=== PATIENT | female | born 1975 | race Caucasian/White ===

== ENCOUNTER → 2018-07-28 10:17 | Outpatient (CLI) | payer OTHER, SELFPAY | PROVIDERS: PCP Family Medicine; Visit Provider Physician Assistant | DX: B96.89 Other specified bacterial agents as the cause of diseases classified elsewhere (principal); N76.0 Acute vaginitis | CPT/HCPCS: 87210 ==

== ENCOUNTER → 2019-01-06 13:01 | Outpatient (CLI) | payer OTHER, SELFPAY ==
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
== END ==
PROVIDERS: PCP Family Medicine; Visit Provider Physician Assistant
DX: S09.93XA Unspecified injury of face, initial encounter (principal); R51 Headache; X58.XXXA Exposure to other specified factors, initial encounter
CPT/HCPCS: 70150

== ENCOUNTER 2019-09-24 13:19 | Emergency (ER) | payer OTHER, SELFPAY ==
[2019-09-24 13:22] VITALS: BP 149/90; PULSE 109; RESP 16; TEMP 36.7; O2SAT 99
--- NOTE | 2019-09-24 15:49 | ED.EXTPRO ---
HPI - Extremity Problem <RUTHIE Doyle - Last Filed: 09/24/19 15:57> General Chief complaint: Extremity Problem,Nontraumatic Stated complaint: L MIDDLE FINGER SWOLLEN Time Seen by Provider: 09/24/19 15:15 Source: patient Mode of arrival: Ambulatory Limitations: no limitations History of Present Illness HPI Narrative: This is a 43-year-old female, nonsmoker, who presents to ED with significant other with nontraumatic left 3rd proximal and middle phalange swelling and bruise. Patient states she is not able to recall any trauma or injury to the affected finger. She noticed some weird feeling on her finger when she was putting lotion on her hand. Patient reports intact sensation and able to move fingers without difficulty such as flexion and extension. Patient denies over stretching or flexing unaffected finger that she can recall. Patient denies easy bruising or bleeding and she is not on blood thinner or taking excessive NSAIDS. Patient reports mild discomfort with flexion of affected finger. Related Data Home Medications Medication Instructions Recorded Confirmed No Known Home Medications 01/06/19 01/06/19 Allergies Allergy/AdvReac Type Severity Reaction Status Date / Time codeine [CODEINE] Allergy Unknown Verified 01/06/19 13:14 Review of Systems <RUTHIE Doyle - Last Filed: 09/24/19 15:57> Review of Systems Narrative: General: Denies fever, chills, fatigue, malaise, sweats. HEENT: Denies sinus pain, ear pain, sore throat, difficulty swallowing, dizziness. Respiratory: Denies dyspnea, cough, wheezing, hemoptysis, sputum. Cardiovascular: Denies chest pain, palpitations, orthopnea, edema. Gastrointestinal: Denies nausea, vomiting, abdominal pain, diarrhea, constipation, melena. : Denies dysuria, frequency, incontinence, hematuria, urinary retention. Musculoskeletal: See HPI Skin: See HPI Neurologic: Denies weakness, headache, numbness, change in speech, confusion, seizures, incoordination. Psychiatric: No concerning psychosocial issues. 12-point review of systems is negative except for those stated above. Patient History <RUTHIE Doyle - Last Filed: 09/24/19 15:57> Social History Smoking Status: Never smoker Smoking Status: Never smoker Substance Use Type: does not use Exam <Melvin ArguellesRUTHIE - Last Filed: 09/24/19 15:57> Narrative Exam Narrative: General appearance: well developed, well nourished, in no acute distress. Head: normocephalic, atraumatic, no scalp lesions, non-tender. ENT: Hearing grossly intact. Nose without bleeding, purulent discharge or deviation. Mucous membrane moist, no mucosal lesion. Throat without erythema, tonsillar hypertrophy or exudate. Uvula in midline, airway patent. Neck/Thyroid: neck supple, full range of motion, no visible masses or meningeal signs. No JVD, non-tender without lymphadenopathy. Skin: mild ecchymosis and swelling to right 3rd middle and proximal phalanges without redness, warmth, or skin injury. With no suspicious rashes, lesions over other visible areas. Warm and dry and appropriate color for ethnicity. Heart: no clubbing, no cyanosis, no edema. Lungs: Breathing even and unlabored. No stridor. No accessory muscles used. Able to speak in full sentences. Chest: normal shape and expansion. Abdomen: non-obese, non-distended. Neurologic: alert and oriented. Cognitive exam, [employer] and PNS grossly intact on informal exam. Psych: good eye contact, normal affect. Initial Vital Signs Initial Vital Signs: Vital Signs Temperature 98.1 F 09/24/19 13:22 Pulse Rate 109 H 09/24/19 13:22 Respiratory Rate 16 09/24/19 13:22 Blood Pressure 149/90 H 09/24/19 13:22 Pulse Oximetry 99 09/24/19 13:22 Extrem Right upper extremity: hand Details: normal capillary refill, neuromotor exam normal, neurosensory exam normal, tenderness (Mild) Location: of the 3rd digit Location: at the proximal phalanx and at the middle phalanx, vascular exam Details: radial pulse present, normal ROM of fingers, swelling Location: of the 3rd digit Location: at the proximal phalanx and at the middle phalanx and ecchymosis Location: of the 3rd digit Location: at the proximal phalanx and at the middle phalanx; no unusual warmth, no abrasions and no lacerations <Ana Jimenes DO - Last Filed: 09/24/19 18:36> Initial Vital Signs Initial Vital Signs: Vital Signs Temperature 98.1 F 09/24/19 13:22 Pulse Rate 109 H 09/24/19 13:22 Respiratory Rate 16 09/24/19 13:22 Blood Pressure 149/90 H 09/24/19 13:22 Pulse Oximetry 99 09/24/19 13:22 Scores <JUDSON DoyleP - Last Filed: 09/24/19 15:57> GCS [place] coma scale eye opening: Spontaneous Alexandra coma scale verbal response: Orientated Alexandra coma scale motor response: Obey commands [place] coma scale total score: 15 Course <Melvin JUDSON ArguellesP - Last Filed: 09/24/19 15:57> Vital Signs Vital signs: Vital Signs - 8 hr 09/24/19 13:22 Temperature 98.1 F Pulse Rate 109 H Respiratory Rate 16 Blood Pressure 149/90 H Pulse Oximetry 99 <Ana Jimenes DO - Last Filed: 09/24/19 18:36> Vital Signs Vital signs: Vital Signs - 8 hr 09/24/19 13:22 Temperature 98.1 F Pulse Rate 109 H Respiratory Rate 16 Blood Pressure 149/90 H Pulse Oximetry 99 MDM - Extremity (Nontraumatic) <Melvin JUDSON ArguellesP - Last Filed: 09/24/19 15:57> Differential Diagnosis Differential diagnosis: Likely cellulitis and other (Fracture, contusion, hematoma) Medical Records Attestation: I reviewed the patient's medical records. [facility] Narrative Medical decision making narrative: Patient declined x-ray test since she is able to move affected finger without difficulty and this was nontraumatic swelling and ecchymosis to right 3rd finger. Unable to locate other significant bruise or bleeding noted or reported by patient. Patient reports pain is very mild as 1/10. At this time patient was of advised to monitor for her symptoms and use ice pack for swelling for next couple of days in use Tylenol as needed for discomfort. If patient notices signs of cellulitis then return to ED or follow up with her primary care physician. Patient also advised to monitor other excessive bruising or bleeding and to follow-up with her primary care physician for lab draw. Patient verbalized understanding and agrees with treatment plan. Discharge Plan Departure Patient Disposition: Home Clinical Impression: Hematoma Discharge Date/Time: 09/24/19 15:53 Instructions: DI for Hematoma (Bruise) Activity Restrictions/Additional Instructions: You have been diagnosed with [spontaneous left 3rd finger bruise/hematoma. X-ray test was deferred since you are able to move without difficulty or much pain.]. What to do: *Take your medications as directed. You can use cool pack for next couple of days frequently 4 to 6 times a day for 30 minutes each. If you have discomfort he can take Tylenol as needed. *Follow up with your primary care provider in 2-3 days, call for an appointment. If you have recurring bruising and bleeding in other areas, please follow-up with your doctor for blood draw. Let them know you were seen in the ED and that we asked you to be seen in follow up. *Return to ED if you have any new, worsening, or concerning symptoms, such as [chest pain, breathing difficulty, unable to tolerate fluids, pain, fever, redness, swelling, warmth spreading on your finger or any acute concerns]. Prescriptions: No Action No Known Home Medications RF: 0 Referrals: Debra Alexander MD [Primary Care Provider] -
== END 2019-09-24 15:53 | disposition home or self-care (01) ==
PROVIDERS: Emergency Provider Nurse Practitioner Family; PCP Family Medicine
DX: S60.032A Contusion of left middle finger without damage to nail, initial encounter (principal)
CPT/HCPCS: 99281

== ENCOUNTER → 2021-01-31 08:05 | Outpatient (CLI) | payer OTHER, SELFPAY ==
[2021-01-31 08:25] LABS: Add Manual Diff / Slide Review NO; Basophils Absolute Auto 100 /uL (0-100); Basophils Percent Auto 2.2 % (0-2); Eosinophils Absolute Auto 300 /uL (0-450); Eosinophils Percent Auto 7.5 % (2-4); Hematocrit 30.2 % (36-46); Hemoglobin 9.5 g/dL (12.0-16.0); Lymphocytes Absolute Auto 1200 /uL (1100-4500); Lymphocytes Percent Auto 27.8 % (25-40); Mean Corpuscular HGB Conc 31.5 % (30-36); Mean Corpuscular Hemoglobin 21.9 PG (26-34); Mean Corpuscular Volume 69.6 fL (80-100); Monocytes Absolute Auto 200 /uL (0-900); Monocytes Percent Auto 5.4 % (3-14); Neutrophils Absolute Auto 2600 /uL (1500-7000); Neutrophils Percent Auto 57.1 % (50-75); Platelet Count 247 X10^3/uL (150-400); Red Blood Cell Count 4.34 X10^6/uL (4.0-5.2); Red Cell Distribution Width 16.7 % (11.6-14.8); White Blood Cell Count 4.5 X10^3/uL (4.5-11.0)
[2021-01-31 08:39] LABS: BUN Creatinine Ratio 13.3 (6-22); Blood Urea Nitrogen 10 mg/dL (7-17); Calcium 9.1 mg/dL (8.4-10.2); Carbon Dioxide 23 mmol/L (22-32); Chloride 108 mmol/L (98-107); Estimated Glomerular Filt Rate > 60.0 mL/min (>60); Glucose 100 mg/dL (70-100); HEMOLYSIS < 15 (0-50); Potassium 3.9 mmol/L (3.4-5.1); Sodium 139 mmol/L (137-145)
[2021-01-31 09:10] LABS: Anisocytosis 1+; Microcytosis 1+; Platelet Estimate Adequate on smear
== END ==
PROVIDERS: PCP Family Medicine; Referring Provider Physician Assistant; Visit Provider Physician Assistant
DX: R10.9 Unspecified abdominal pain (principal)
CPT/HCPCS: 36415; 80048; 85025

== ENCOUNTER → 2021-07-22 09:07 | Outpatient (CLI) | payer OTHER, SELFPAY ==
[2021-07-26 09:45] LABS: HSV 1 DNA Negative (Negative); HSV 2 DNA Negative (Negative)
== END ==
PROVIDERS: PCP Family Medicine; Visit Provider Nurse Practitioner Family
DX: N89.8 Other specified noninflammatory disorders of vagina (principal); N39.0 Urinary tract infection, site not specified
CPT/HCPCS: 87086; 87210; 87529

== ENCOUNTER 2021-08-11 14:11 | Emergency (ER) | payer OTHER, SELFPAY ==
[2021-08-11 14:27] VITALS: BP 190/102; PULSE 86; RESP 18; TEMP 36.7; O2SAT 100; BMI 24.7
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
[2021-08-11 15:04] VITALS: BP 136/82; PULSE 84; RESP 20; O2SAT 99
== END 2021-08-11 15:45 | disposition home or self-care (01) ==
PROVIDERS: Emergency Provider Physician Assistant; PCP Family Medicine
DX: S16.1XXA Strain of muscle, fascia and tendon at neck level, initial encounter (principal); V89.2XXA Person injured in unspecified motor-vehicle accident, traffic, initial encounter; Y92.481 Parking lot as the place of occurrence of the external cause
CPT/HCPCS: 72040; 99283

== ENCOUNTER 2022-03-19 10:52 | Emergency (ER) | payer OTHER, SELFPAY ==
[2022-03-19] VITALS (10 sets, daily range): BP systolic 85–112; BP diastolic 53–64; PULSE 71–85; RESP 16; TEMP 36.4; O2SAT 99–100; BMI 25.8
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
[2022-03-19] MEDS: diazePAM 5 MG TABLET PO (12:22)
[2022-03-19] MEDS: KETOROLAC 30 MG/ML VIAL IM (12:22)
[2022-03-19] MEDS: HYDROMORPHONE 2 MG INJ 1 MG SUBCUT (13:09)
== END 2022-03-19 15:18 | disposition home or self-care (01) ==
PROVIDERS: Emergency Provider Emergency Medicine; PCP Family Medicine
DX: S39.012A Strain of muscle, fascia and tendon of lower back, initial encounter (principal); X50.1XXA Overexertion from prolonged static or awkward postures, initial encounter
CPT/HCPCS: 96372; 99283; J1170; J1885

== ENCOUNTER → 2022-06-19 17:35 | Outpatient (CLI) | payer OTHER, SELFPAY ==
--- NOTE | 2022-06-19 17:37 | DI.RAD.S_ITS ---
PROCEDURE: XR WRIST RT MIN 3V INDICATIONS: Right wrist injury - FOOSH - Snuffbox tenderness TECHNIQUE: 4 views of the wrist were acquired. COMPARISON: None. FINDINGS: Bones: No fractures or dislocations. No suspicious bony lesions. Scaphoid view: Intact Soft tissues: No suspicious soft tissue calcifications. IMPRESSION: No acute osseous abnormality. Dictated by: Tom Mosquera M.D. on 06/19/2022 at 17:31 Approved by: Tom Mosquera M.D. on 06/19/2022 at 17:32
--- NOTE | 2022-06-19 17:37 | DI.RAD.S_ITS ---
PROCEDURE: XR ELBOW RT MIN 3V INDICATIONS: Right elbow injury - FOOSH TECHNIQUE: 3 views of the elbow were acquired. COMPARISON: None. FINDINGS: Bones: Vertically oriented radial head and neck fracture with intra-articular extension. No dislocations. No suspicious bony lesions. Soft tissues: Small anterior elbow joint effusion. No suspicious soft tissue calcifications. IMPRESSION: Vertically oriented radial head and neck fracture with intra-articular extension. Dictated by: Tom Mosquera M.D. on 06/19/2022 at 17:32 Approved by: Tom Mosquera M.D. on 06/19/2022 at 17:34
== END ==
PROVIDERS: PCP Family Medicine; Referring Provider Registered Nurse; Visit Provider Registered Nurse
DX: S52.121A Displaced fracture of head of right radius, initial encounter for closed fracture (principal); S52.131A Displaced fracture of neck of right radius, initial encounter for closed fracture; M25.531 Pain in right wrist; M25.521 Pain in right elbow; W19.XXXA Unspecified fall, initial encounter
CPT/HCPCS: 73080; 73110

== ENCOUNTER → 2022-06-30 13:32 | Outpatient (ROUT) | payer OTHER, SELFPAY ==
[2022-06-30 13:51] LABS: D Dimer 844 ng/ml (<500)
== END ==
PROVIDERS: PCP Family Medicine; Visit Provider Family Medicine
DX: R07.89 Other chest pain (principal)
CPT/HCPCS: 85379

== ENCOUNTER 2023-02-08 07:29 | Emergency (ER) | payer OTHER, SELFPAY ==
[2023-02-08 07:39] VITALS: BP 131/80; PULSE 94; RESP 18; TEMP 37.2; O2SAT 98; BMI 26.6
--- NOTE | 2023-02-08 07:45 | ED.BACK ---
HPI - Back Pain/Injury General Chief Complaint: Back Pain/Injury Stated Complaint: kidney stones Time Seen by Provider: 02/08/23 07:32 Source: patient History of Present Illness HPI Narrative: 47-year-old female nonsmoker with history of kidney stones presents with a chief complaint of a relatively sudden onset low back pain that started this morning. Her pain is significantly worse when she moves and improves with rest. There is no significant radiation of her pain. She denies any trauma or injury. She is had no fever or chills. She does not take blood thinners. She denies loss of control of bowel or bladder. She denies any numbness, tingling or weakness of lower extremities. She states she has had kidney stones in the past and this feels in some ways relatively similar. She just started her menstrual cycle today Related Data Previous Rx's Medication Instructions Recorded cyclobenzaprine 10 mg tablet 10 mg PO Q8H PRN muscle spasm #21 08/11/21 tabs hydrocodone 5 mg-acetaminophen 325 1 tab PO Q8H PRN pain #7 tabs 08/11/21 mg tablet ibuprofen 800 mg tablet 800 mg PO Q8H PRN pain #21 tabs 08/11/21 diazepam 5 mg tablet (Valium) 5 mg PO Q12HR PRN muscle spasm #10 03/19/22 tabs hydrocodone 5 mg-acetaminophen 325 1 tab PO Q6H PRN pain #10 tabs 03/19/22 mg tablet oxycodone-acetaminophen 5 mg-325 1 tab PO Q6H PRN pain #10 tabs 06/19/22 mg tablet (Percocet) cyclobenzaprine 10 mg tablet 10 mg PO TID PRN muscle spasm #14 02/08/23 tabs hydrocodone 5 mg-acetaminophen 325 1 tab PO Q4-6H PRN pain #10 tabs 02/08/23 mg tablet ketorolac 10 mg tablet 10 mg PO Q6H PRN pain #14 tabs 02/08/23 Allergies Allergy/AdvReac Type Severity Reaction Status Date / Time codeine [CODEINE] Allergy Unknown Verified 02/08/23 07:43 Review of Systems Review of Systems Narrative: GENERAL: Denies chills, fatigue, malaise, fever, sweats. HEENT: Denies sinus pain, ear pain, sore throat, difficulty swallowing, dizziness. RESPIRATORY: Denies dyspnea, cough, wheezing, hemoptysis, sputum. CARDIOVASCULAR: Denies chest pain, palpitations, orthopnea, edema, GASTROINTESTINAL: Denies nausea, vomiting, abdominal pain, diarrhea, constipation, melena. : See HPI MUSCULOSKELETAL: See HPI SKIN: Denies rash, skin lesions, or other NEUROLOGIC: Denies weakness, headache, numbness, change in speech, confusion, seizures, incoordination. PSYCHIATRIC: No concerning psychosocial issues. 12 point review of systems is negative except for those stated above Patient History Social History Smoking Status: Never smoker Smoking Status: Never smoker alcohol intake frequency: holidays/special occasions only Substance Use Type: does not use Exam Narrative Exam Narrative: GENERAL: [47] year old patient appears stated age. Well-developed patient, in mild distress. HEAD: Atraumatic. Normocephalic. EYES: Pupils equal round and reactive. Extraocular motions intact. No scleral icterus. No injection or drainage. ENT: Nose without bleeding, purulent drainage. Throat without erythema, tonsillar hypertrophy or exudate. Airway patent. NECK: Trachea midline. Non tender CARDIOVASCULAR: Regular rate and rhythm without murmurs, gallops, or rubs. RESPIRATORY: Clear to auscultation. Breath sounds equal bilaterally. No wheezes, rales, or rhonchi. GASTROINTESTINAL: Abdomen soft, non-tender, nondistended. EXTREMITIES: No edema or joint tenderness. BACK: excelsior machine tender but free of any obvious external abnormalities. Patient exam notes decreased range of motion and muscle spasm, but no CVA tenderness, or vertebral point tenderness. There are no symptoms of cauda equina such as saddle anesthesia, and decreased reflexes, decreased sensation or strength. NEURO: AOx3. SKIN: No rash or erythema of visible areas Initial Vital Signs Initial Vital Signs: Vital Signs Temperature 99.0 F 02/08/23 07:39 Pulse Rate 94 H 02/08/23 07:39 Respiratory Rate 18 02/08/23 07:39 Blood Pressure 131/80 02/08/23 07:39 Pulse Oximetry 98 02/08/23 07:39 Oxygen Delivery Method Room Air 02/08/23 07:39 Course Orders Ordered: Discontinued Medications Sodium Chloride (Normal Saline 0.9%) 1,000 mls @ 1,000 mls/hr IV BOLUS ONE Stop: 02/08/23 08:37 Last Infusion: 02/08/23 09:23 Dose: 0 mls/hr Documented By: Admin: 02/08/23 08:12 Dose: 1,000 mls/hr Documented By: AT Lidocaine HCl 6 ml/ Sodium (Chloride) 56 mls @ 336 mls/hr IV NOW ONE Stop: 02/08/23 08:37 Last Infusion: 02/08/23 09:23 Dose: 0 mls/hr Documented By: Admin: 02/08/23 09:02 Dose: 336 mls/hr Documented By: AT Ketorolac Tromethamine (Ketorolac 30 Mg/Ml Vial) 15 mg IV NOW ONE Stop: 02/08/23 08:37 Last Admin: 02/08/23 09:00 Dose: 15 mg Documented By: AT Lidocaine (Lidocaine Patch 1 Each Adh..Patch) 1 each TOP NOW ONE Stop: 02/08/23 09:45 Vital Signs Vital signs: Vital Signs - 8 hr 02/08/23 07:39 Temperature 99.0 F Pulse Rate 94 H Respiratory Rate 18 Blood Pressure 131/80 Pulse Oximetry 98 Oxygen Delivery Method Room Air MDM - Back Pain/Injury Lab Data 02/08/23 08:18 02/08/23 08:18 Labs: Lab Results 02/08/23 02/08/23 02/08/23 Range/Units 08:18 08:18 08:18 WBC 5.0 (4.5-11.0) X10^3/uL RBC 3.95 L (4.0-5.2) X10^6/uL Hgb 7.5 L (12.0-16.0) g/dL Hct 24.6 L (36-46) % MCV 62.2 L (80-100) fL MCH 18.9 L (26-34) PG MCHC 30.3 (30-36) % RDW 18.9 H (11.6-14.8) % Plt Count 319 (150-400) X10^3/uL Neut % (Auto) 64.7 (50-75) % Lymph % (Auto) 21.8 L (25-40) % [place] % (Auto) 5.6 (3-14) % Eos % (Auto) 5.9 H (2-4) % Baso % (Auto) 2.0 (0-2) % Neut # (Auto) 3200 (5933-1879) /uL Lymph # (Auto) 1100 (6249-9832) /uL [place] # (Auto) 300 (0-900) /uL Eos # (Auto) 300 (0-450) /uL Baso # (Auto) 100 (0-100) /uL Platelet Estimate Adequate on smear RBC Morphology See below Anisocytosis 1+ H Microcytosis 1+ H Sodium 137 (137-145) mmol/L Potassium 4.0 (3.4-5.1) mmol/L Chloride 108 H (98-107) mmol/L Carbon Dioxide 23 (22-32) mmol/L BUN 11 (7-17) mg/dL Creatinine 0.71 (0.52-1.04) mg/dL Estimated GFR > 60 (>60) mL/min BUN/Creatinine Ratio 15.5 (6-22) Glucose 100 (70-100) mg/dL Calcium 8.5 (8.4-10.2) mg/dL Total Bilirubin 0.5 (0.2-1.3) mg/dL AST 31 (14-36) IU/L ALT 31 (<35) IU/L Alkaline Phosphatase 58 (38-126) U/L Total Protein 6.9 (6.3-8.2) g/dL Albumin 4.0 (3.5-5.0) g/dL Globulin 2.9 (1.7-4.1) g/dL Albumin/Globulin Ratio 1.4 (1.0-2.8) Urine RBC 30-100/hpf H (0-5/HPF) Urine WBC 1-5/hpf (0-5/HPF) Ur Squamous Epith Cells 1-5 /hpf (0-5/HPF) Urine Bacteria Few (2-10) H (None) Ur Culture Indicated? Cult not indicated Point of Care Testing Test Results Negative Urine Dip Bedside Urine Glucose Negative Bedside Urine Bilirubin - Negative Bedside Urine Ketone - Negative Urine Specific [place] 1.015 Bedside Urine Occult Blood +++ Bedside Urine pH 6.0 Bedside Urine Protein - Negative Bedside Urine Urobilinogen - Negative Bedside Urine Nitrite - Negative Bedside Urine Leukocytes - Negative Esterase MDM Narrative Medical decision making narrative: [47] year old patient presents with lower back pain Multiple etiologies for patient's symptoms considered including, but not limited to: [Kidney stone versus pyelonephritis versus musculoskeletal versus epidural abscess versus epidural hematoma versus other] Prior Charts reviewed in our EMR Primary Historian: patient Labs reviewed and interpreted by myself: Patient is anemic with hemoglobin 7.5 and 24. No white count or left shift. Electrolytes and kidney function as well as LFTs within normal. Urine demonstrates blood but no sign of infection Imaging reviewed: CT KUB without evidence of stone or other acute process Patient's symptoms improved over duration of stay with above-stated therapies. Given relatively sudden onset of pain some flank involvement and hematuria kidney stone considered but none noted on CT KUB. No evidence of urine infection. Epidural hematoma considered but thought unlikely given lack of trauma or use of blood thinners. Epidural abscess considered but thought unlikely given lack of elevated white blood cell count, immune compromise, IV drug use, furthermore pain is not midline but across her whole lower back Findings and discharge diagnosis discussed with patient/family followed by verbalization of understanding Return precautions discussed with patient/family whom verbalize understanding of diagnosis and plan Discharge Plan Departure Patient Disposition: Home Clinical Impression: Back pain Instructions: DI for Back Spasm Activity Restrictions/Additional Instructions: *You have been diagnosed with [low back pain without evidence of kidney stone, kidney infection ] *What to do: *Please continue to take your regular medications as directed. [x ] New medication prescriptions sent to your pharmacy: [ [facility]] [ ] New medication written as a paper prescription [ ] No new medications given *Please follow up with your primary care provider in 2-3 days, call for an appointment. Let them know you were seen in the Emergency Department and that we ask that you be seen in follow up. We will electronically transmit a record of today's note if your PCP is in our system *If you do not have a primary care provider please contact the [facility] Resource line at [phone]. They will ask some questions about your medical history and help get you set up with a doctor in the community. *Return to Emergency Department if you should have any new, worsening or concerning symptoms, such as [fever greater than 101 F, shaking chills, worsening pain, persistent vomiting or other bothersome symptoms] You have been prescribed a short course of narcotic medications. These are potentially dangerous and addictive medications that should be used carefully. While on these medications you cannot drive or operate heavy machinery. Additionally, you cannot sign legal documents or perform any duties such as this. Many people get constipated on narcotic medications so it would be advisable to discuss stool softeners with the pharmacist when you cone picker your prescription. Please understand that we cannot provide further refills of narcotics or controlled substances through the ED and your pain management will need to be through your Primary Care Provider Prescriptions: New cyclobenzaprine 10 mg tablet 10 mg PO TID PRN (Reason: muscle spasm) Qty: 14 0RF hydrocodone-acetaminophen 5-325 mg tablet 1 tab PO Q4-6H PRN (Reason: pain) Qty: 10 0RF ketorolac 10 mg tablet 10 mg PO Q6H PRN (Reason: pain) Qty: 14 0RF No Action oxycodone-acetaminophen [Percocet] 5-325 mg tablet 1 tab PO Q6H PRN (Reason: pain) Qty: 10 0RF ibuprofen 800 mg tablet 800 mg PO Q8H PRN (Reason: pain) Qty: 21 0RF cyclobenzaprine 10 mg tablet 10 mg PO Q8H PRN (Reason: muscle spasm) Qty: 21 0RF hydrocodone-acetaminophen 5-325 mg tablet 1 tab PO Q8H PRN (Reason: pain) Qty: 7 0RF hydrocodone-acetaminophen 5-325 mg tablet 1 tab PO Q6H PRN (Reason: pain) Qty: 10 0RF diazepam [Valium] 5 mg tablet 5 mg PO Q12HR PRN (Reason: muscle spasm) Qty: 10 0RF Referrals: Debra Alexander MD [Primary Care Provider] - Stand Alone Forms: Patient Portal/API
[2023-02-08] MEDS: SODIUM CHLORIDE 0.9% 1,000 ML 1000 ML IV (08:12)
[2023-02-08 08:14] VITALS: O2SAT 97
[2023-02-08 08:15] VITALS: BP 130/81; PULSE 95; RESP 16; O2SAT 95
[2023-02-08 08:30] VITALS: BP 137/77; PULSE 88; O2SAT 96
[2023-02-08 08:34] LABS: Add Manual Diff / Slide Review NO; Basophils Absolute Auto 100 /uL (0-100); Eosinophils Absolute Auto 300 /uL (0-450); Eosinophils Percent Auto 5.9 % (2-4); Hematocrit 24.6 % (36-46); Hemoglobin 7.5 g/dL (12.0-16.0); Lymphocytes Absolute Auto 1100 /uL (1100-4500); Lymphocytes Percent Auto 21.8 % (25-40); Mean Corpuscular HGB Conc 30.3 % (30-36); Mean Corpuscular Hemoglobin 18.9 PG (26-34); Mean Corpuscular Volume 62.2 fL (80-100); Monocytes Absolute Auto 300 /uL (0-900); Monocytes Percent Auto 5.6 % (3-14); Neutrophils Absolute Auto 3200 /uL (1500-7000); Neutrophils Percent Auto 64.7 % (50-75); Platelet Count 319 X10^3/uL (150-400); Red Blood Cell Count 3.95 X10^6/uL (4.0-5.2); Red Cell Distribution Width 18.9 % (11.6-14.8)
[2023-02-08 08:38] LABS: Alanine Aminotransferase 31 IU/L (<35); Albumin Globulin Ratio 1.4 (1.0-2.8); Alkaline Phosphatase 58 U/L (38-126); Aspartate Aminotransferase 31 IU/L (14-36); BUN Creatinine Ratio 15.5 (6-22); Bilirubin Total 0.5 mg/dL (0.2-1.3); Blood Urea Nitrogen 11 mg/dL (7-17); Calcium 8.5 mg/dL (8.4-10.2); Carbon Dioxide 23 mmol/L (22-32); Chloride 108 mmol/L (98-107); Estimated Glomerular Filt Rate > 60 mL/min (>60); Globulin 2.9 g/dL (1.7-4.1); Glucose 100 mg/dL (70-100); HEMOLYSIS < 15 (0-50); Sodium 137 mmol/L (137-145); Total Protein 6.9 g/dL (6.3-8.2)
--- NOTE | 2023-02-08 08:43 | DI.CT.S_ITS ---
PROCEDURE: CT KIDNEY URETER BLADDER (KUB) INDICATIONS: flank pain, hematuria, stones? TECHNIQUE: Axial sections were acquired from the lung bases to the pubic symphysis. Coronal and sagittal reformats were performed. For radiation dose reduction, the following was used: automated exposure control, adjustment of mA and/or kV according to patient size. COMPARISON: None. FINDINGS: Image quality: Excellent. Lung bases: Unremarkable. Heart: No significant findings. URINARY: Right Kidney: No stones or hydronephrosis. Right Ureter: No hydroureter. Left Kidney: No stones or hydronephrosis. Punctate nonobstructing calcifications in the kidney. Left Ureter: No hydroureter. Bladder: Normal wall thickness. No stones. ABDOMEN: Liver: Unremarkable. Gallbladder: Unremarkable. Biliary ducts: Unremarkable. Pancreas: Unremarkable. Spleen: Unremarkable. Adrenal Glands: Unremarkable. Stomach and Bowel: Stomach, small bowel loops, and colon are unremarkable. Peritoneum: No abnormal intraperitoneal fluid. No free air. Ventral Wall: No hernia. Abdominal Nodes: No enlarged retroperitoneal or mesenteric lymph nodes. Vessels: Aorta and inferior vena cava are normal in size. Mild vascular calcifications. PELVIS: Pelvic Organs: Unremarkable. Pelvic Nodes: Unremarkable. Miscellaneous: No inguinal hernias are seen. Bones: Unremarkable. IMPRESSION: 1. No acute abnormality. 2. No nephroureterolithiasis. Dictated by: Evan Kumar M.D. on 02/08/2023 at 8:54 Approved by: Evan Kumar M.D. on 02/08/2023 at 8:58
[2023-02-08 08:47] LABS: Bacteria Urine Few (2-10); Culture Indicated Urine Cult Not Indicated; RBC Urine 30-100/HPF (0-5/HPF); Squamous Epithelial Cell Urine 1-5 /HPF (0-5/HPF); WBC Urine 1-5/HPF (0-5/HPF)
[2023-02-08] MEDS: KETOROLAC 30 MG/ML VIAL 15 MG IV (09:00)
[2023-02-08] MEDS: LIDOCAINE 2% (PF) 6 ML in SODIUM CHLORIDE 0.9% 50 ML 336 ML IV (09:02)
[2023-02-08 09:10] VITALS: PULSE 91; O2SAT 99
[2023-02-08 09:11] VITALS: BP 135/88; PULSE 89; RESP 18; O2SAT 99
[2023-02-08 09:38] LABS: Anisocytosis 1+; Microcytosis 1+; Platelet Estimate Adequate on smear
== END 2023-02-08 10:09 | disposition home or self-care (01) ==
PROVIDERS: Emergency Provider Emergency Medicine; PCP Family Medicine
DX: M54.50 Low back pain, unspecified (principal); Z87.442 Personal history of urinary calculi
CPT/HCPCS: 36415; 74176; 80053; 81003; 81015; 81025; 85025; 96365; 96375; 99284; J1885

== ENCOUNTER → 2023-07-18 08:22 | Outpatient (CLI) | payer OTHER, SELFPAY ==
--- NOTE | 2023-07-18 | DI.RAD.S_ITS ---
PROCEDURE: XR ABDOMEN 3V INDICATIONS: URGE URINARY INCONTINENCE, irregular bowel habits, iron deficiency. TECHNIQUE: 4 views of the abdomen were acquired. COMPARISON: None. FINDINGS: Surgical changes and devices: None. Abdomen: Bowel gas pattern is normal. Small calcifications are noted projecting in the region of mid to lower pole left kidney and measures 3-4 mm in size. Visualized solid organ contours appear normal. Bones: No suspicious bony lesions. IMPRESSION: Possible left renal calculi as above. No definite right-sided renal stones. No bowel obstruction or gross free air. Dictated by: Dino Branham M.D. on 07/18/2023 at 11:09 Approved by: Dino Branham M.D. on 07/18/2023 at 11:10
== END ==
PROVIDERS: PCP Family Medicine; Referring Provider Family Medicine; Visit Provider Family Medicine
DX: N39.46 Mixed incontinence (principal); R19.8 Other specified symptoms and signs involving the digestive system and abdomen; D50.0 Iron deficiency anemia secondary to blood loss (chronic)
CPT/HCPCS: 74021

== ENCOUNTER → 2023-08-10 08:51 | Outpatient (CLI) | payer OTHER, SELFPAY ==
--- NOTE | 2023-08-10 | DI.RAD.S_ITS ---
PROCEDURE: XR CHEST 2V INDICATIONS: chest pain TECHNIQUE: 2 views of the chest were acquired. COMPARISON: [facility], , CHEST 2 VIEW, 01/08/2017, 19:23. FINDINGS: Surgical changes and devices: None. Lungs and pleura: Lungs are clear. No pleural effusions or pneumothorax. Mediastinum: Mediastinal contours are normal. Heart size is normal. Bones and chest wall: No suspicious bony abnormalities. Soft tissues appear unremarkable. IMPRESSION: No acute cardiopulmonary abnormality. Dictated by: Tom Mosquera M.D. on 08/10/2023 at 9:31 Approved by: Tom Mosquera M.D. on 08/10/2023 at 9:32
== END ==
PROVIDERS: PCP Family Medicine; Referring Provider Family Medicine; Visit Provider Family Medicine
DX: R07.9 Chest pain, unspecified (principal)
CPT/HCPCS: 71046

== ENCOUNTER → 2023-09-09 09:17 | Outpatient (CLI) | payer OTHER, SELFPAY | PROVIDERS: PCP Family Medicine; Visit Provider Nurse Practitioner Family | DX: R39.15 Urgency of urination (principal) | CPT/HCPCS: 87086 ==

== ENCOUNTER 2023-09-10 09:43 | Emergency (ER) | payer OTHER, SELFPAY ==
[2023-09-10] VITALS (9 sets, daily range): BP systolic 138–158; BP diastolic 77–94; PULSE 77–94; RESP 18; TEMP 36.9; O2SAT 92–98; BMI 27.4
[2023-09-10] MEDS: SODIUM CHLORIDE 0.9% 1,000 ML 1000 ML IV (10:09)
[2023-09-10] MEDS: KETOROLAC 30 MG/ML VIAL 15 MG IV (10:10)
--- NOTE | 2023-09-10 10:31 | ED.FEMALEGU ---
HPI - Female Genitourinary General Chief complaint: Urogenital-Female Stated complaint: poss kidney stones Time Seen by Provider: 09/10/23 09:53 Source: patient Mode of arrival: Ambulatory History of Present Illness HPI Narrative: 47-year-old female presents for evaluation of lower pelvic pain. Patient is 2.5 weeks status post hysterectomy through OBGYN at [facility] for menorrhagia leading to severe anemia. Patient states that she has been recovering at home without difficulty, however several days prior she began to notice Gradually worsening pelvic pain. She went to the walk-in clinic and was diagnosed with a urinary tract infection and was placed on Keflex. She called her OB GYNs office earlier today who requested that she go to the ER for further evaluation. She has noticed light vaginal spotting which she assumes is normal after her hysterectomy. denies history of kidney stones. Related Data Previous Rx's Medication Instructions Recorded cyclobenzaprine 10 mg tablet 10 mg PO Q8H PRN muscle spasm #21 08/11/21 tabs hydrocodone 5 mg-acetaminophen 325 1 tab PO Q8H PRN pain #7 tabs 08/11/21 mg tablet ibuprofen 800 mg tablet 800 mg PO Q8H PRN pain #21 tabs 08/11/21 diazepam 5 mg tablet (Valium) 5 mg PO Q12HR PRN muscle spasm #10 03/19/22 tabs hydrocodone 5 mg-acetaminophen 325 1 tab PO Q6H PRN pain #10 tabs 03/19/22 mg tablet oxycodone-acetaminophen 5 mg-325 1 tab PO Q6H PRN pain #10 tabs 06/19/22 mg tablet (Percocet) cyclobenzaprine 10 mg tablet 10 mg PO TID PRN muscle spasm #14 02/08/23 tabs hydrocodone 5 mg-acetaminophen 325 1 tab PO Q4-6H PRN pain #10 tabs 02/08/23 mg tablet ketorolac 10 mg tablet 10 mg PO Q6H PRN pain #14 tabs 02/08/23 cephalexin 500 mg capsule 500 mg PO QID 5 days #20 caps 09/09/23 Allergies Allergy/AdvReac Type Severity Reaction Status Date / Time codeine [CODEINE] Allergy Unknown Verified 09/09/23 09:28 Review of Systems Review of Systems Narrative: Negative except as noted above Patient History alcohol intake frequency: holidays/special occasions only Substance Use Type: does not use Exam Initial Vital Signs Initial Vital Signs: Vital Signs Temperature 98.5 F 09/10/23 09:47 Pulse Rate 85 09/10/23 09:47 Respiratory Rate 18 09/10/23 09:47 Pulse Oximetry 95 09/10/23 09:47 Oxygen Delivery Method Room Air 09/10/23 09:47 ?Const: Awake, alert, no acute distress, nontoxic appearing Cardiac: regular rate, regular rhythm RESP: unlabored, clear bilaterally, no wheezing GI: Atraumatic, soft, suprapubic tenderness to deep palpation MSK: Atraumatic, full range of motion, pulses equal Skin: Warm, Dry, intact, no rashes Neuro: AO x3, CN II-XII grossly intact, moves all extremities Psych: affect normal, mood normal, not suicidal, not homicidal Course Orders Ordered: Discontinued Medications Sodium Chloride (Normal Saline 0.9%) 1,000 mls @ 1,000 mls/hr IV BOLUS ONE Stop: 09/10/23 11:01 Last Infusion: 09/10/23 11:43 Dose: Infused Documented By: Admin: 09/10/23 10:09 Dose: 1,000 mls/hr Documented By: CJ Ketorolac Tromethamine (Ketorolac 30 Mg/Ml Vial) 15 mg IV NOW ONE Stop: 09/10/23 10:03 Last Admin: 09/10/23 10:10 Dose: 15 mg Documented By: CJ Vital Signs Vital signs: Vital Signs - 8 hr 09/10/23 09:47 09/10/23 09:56 09/10/23 09:57 Temperature 98.5 F Pulse Rate 85 Respiratory Rate 18 Blood Pressure 158/84 H Pulse Oximetry 95 92 Oxygen Delivery Method Room Air 09/10/23 09:57 09/10/23 10:00 09/10/23 10:00 Temperature Pulse Rate 92 H 87 Respiratory Rate Blood Pressure 138/77 Pulse Oximetry 95 94 Oxygen Delivery Method 09/10/23 10:21 09/10/23 10:21 09/10/23 10:30 Temperature Pulse Rate 91 H 94 H Respiratory Rate Blood Pressure 148/88 H Pulse Oximetry 97 94 Oxygen Delivery Method 09/10/23 10:30 09/10/23 11:00 09/10/23 11:30 Temperature Pulse Rate 80 77 Respiratory Rate Blood Pressure 151/88 H Pulse Oximetry 98 95 Oxygen Delivery Method MDM - Female Genitourinary Differential Diagnosis Differential diagnosis: Likely urinary tract infection, vaginitis and ruptured ovarian cyst Lab Data 09/10/23 10:20 09/10/23 10:20 Labs: Lab Results 09/10/23 Range/Units 10:20 WBC 8.0 (4.5-11.0) X10^3/uL RBC 5.09 (4.0-5.2) X10^6/uL Hgb 14.0 (12.0-16.0) g/dL Hct 41.0 (36-46) % MCV 80.4 (80-100) fL MCH 27.5 (26-34) PG MCHC 34.2 (30-36) % RDW 25.8 H (11.6-14.8) % Plt Count 312 (150-400) X10^3/uL Neut % (Auto) 72.4 (50-75) % Lymph % (Auto) 17.2 L (25-40) % [place] % (Auto) 5.2 (3-14) % Eos % (Auto) 4.2 H (2-4) % Baso % (Auto) 1.0 (0-2) % Neut # (Auto) 5800 (5870-9166) /uL Lymph # (Auto) 1400 (3701-6758) /uL [place] # (Auto) 400 (0-900) /uL Eos # (Auto) 300 (0-450) /uL Baso # (Auto) 100 (0-100) /uL RBC Morphology See below Poikilocytosis 1+ H Anisocytosis 2+ H Sodium 137 (137-145) mmol/L Potassium 3.3 L (3.4-5.1) mmol/L Chloride 103 (98-107) mmol/L Carbon Dioxide 23 (22-32) mmol/L BUN 11 (7-17) mg/dL Creatinine 0.80 (0.52-1.04) mg/dL Estimated GFR > 60 (>60) mL/min BUN/Creatinine Ratio 13.8 (6-22) Glucose 86 (70-100) mg/dL Calcium 10.0 (8.4-10.2) mg/dL Total Bilirubin 0.8 (0.2-1.3) mg/dL AST 34 (14-36) IU/L ALT 41 H (<35) IU/L Alkaline Phosphatase 58 (38-126) U/L Total Protein 8.4 H (6.3-8.2) g/dL Albumin 4.7 (3.5-5.0) g/dL Globulin 3.7 (1.7-4.1) g/dL Albumin/Globulin Ratio 1.3 (1.0-2.8) MDM Narrative Medical decision making narrative: Patient presenting for lower abdominal pain, concerns for kidney stones. I explained that ideally, especially postoperatively I would like to get a CT scan. Patient stated that they were numerous family members with various cancers in her family and she has already had CT scans in the past. Due to the radiation risk she did not want a CT scan. CT of the renal system was negative for acute findings. Since patient is so recently postoperative after a hysterectomy a call was placed to the patient's OBGYN office. They state that the patient is not supposed to have any transabdominal imaging at, however a gentle speculum exam is okay. I discussed all lab and imaging findings with the Patient. She states that she is follow up appointment with her OB GYNs office in just 2 days and we will defer a speculum exam at this time. She will continue to take Tylenol and Motrin as needed for pain and we will continue to take her antibiotics as previously prescribed. Discharge Plan Departure Patient Disposition: Home Clinical Impression: Pelvic pain Instructions: DI for Pelvic Pain Prescriptions: No Action cephalexin 500 mg capsule 500 mg PO QID 5 Days Qty: 20 0RF oxycodone-acetaminophen [Percocet] 5-325 mg tablet 1 tab PO Q6H PRN (Reason: pain) Qty: 10 0RF cyclobenzaprine 10 mg tablet 10 mg PO TID PRN (Reason: muscle spasm) Qty: 14 0RF hydrocodone-acetaminophen 5-325 mg tablet 1 tab PO Q4-6H PRN (Reason: pain) Qty: 10 0RF ketorolac 10 mg tablet 10 mg PO Q6H PRN (Reason: pain) Qty: 14 0RF ibuprofen 800 mg tablet 800 mg PO Q8H PRN (Reason: pain) Qty: 21 0RF cyclobenzaprine 10 mg tablet 10 mg PO Q8H PRN (Reason: muscle spasm) Qty: 21 0RF hydrocodone-acetaminophen 5-325 mg tablet 1 tab PO Q8H PRN (Reason: pain) Qty: 7 0RF hydrocodone-acetaminophen 5-325 mg tablet 1 tab PO Q6H PRN (Reason: pain) Qty: 10 0RF diazepam [Valium] 5 mg tablet 5 mg PO Q12HR PRN (Reason: muscle spasm) Qty: 10 0RF Referrals: Debra Alexander MD [Primary Care Provider] - Stand Alone Forms: Patient Portal/API
[2023-09-10 10:34] LABS: Add Manual Diff / Slide Review NO; Basophils Absolute Auto 100 /uL (0-100); Eosinophils Absolute Auto 300 /uL (0-450); Eosinophils Percent Auto 4.2 % (2-4); Lymphocytes Absolute Auto 1400 /uL (1100-4500); Lymphocytes Percent Auto 17.2 % (25-40); Mean Corpuscular HGB Conc 34.2 % (30-36); Mean Corpuscular Hemoglobin 27.5 PG (26-34); Mean Corpuscular Volume 80.4 fL (80-100); Monocytes Absolute Auto 400 /uL (0-900); Monocytes Percent Auto 5.2 % (3-14); Neutrophils Absolute Auto 5800 /uL (1500-7000); Neutrophils Percent Auto 72.4 % (50-75); Platelet Count 312 X10^3/uL (150-400); Red Blood Cell Count 5.09 X10^6/uL (4.0-5.2); Red Cell Distribution Width 25.8 % (11.6-14.8)
--- NOTE | 2023-09-10 10:47 | PC.NURSE ---
Pt concerned about having a CT due to radiation exposure and having a recent surgery. Pt requesting to have an ultrasound instead and to wait and see if there are any changes in blood work. RN notified Dr. Hernández.
[2023-09-10 10:52] LABS: Anisocytosis 2+; Poikilocytosis 1+
--- NOTE | 2023-09-10 10:52 | PC.NURSE ---
Addendum entered by Selena Sy CNA 09/10/23 11:46: Called again at 1146 after not hearing back from office or the surgeon. spoke with torito say they are waiting for surgeon to call back will send text to try and get a response Original Note: Pt's OB surgeon office ( [phone] ) contacted per Dr. Hernández. I talked with the body technician and gave her our number. She is going to reach out to the surgeon and call us back.
[2023-09-10 11:04] LABS: Alanine Aminotransferase 41 IU/L (<35); Albumin 4.7 g/dL (3.5-5.0); Albumin Globulin Ratio 1.3 (1.0-2.8); Alkaline Phosphatase 58 U/L (38-126); Aspartate Aminotransferase 34 IU/L (14-36); BUN Creatinine Ratio 13.8 (6-22); Bilirubin Total 0.8 mg/dL (0.2-1.3); Blood Urea Nitrogen 11 mg/dL (7-17); Carbon Dioxide 23 mmol/L (22-32); Chloride 103 mmol/L (98-107); Estimated Glomerular Filt Rate > 60 mL/min (>60); Globulin 3.7 g/dL (1.7-4.1); Glucose 86 mg/dL (70-100); HEMOLYSIS < 15 (0-50); Potassium 3.3 mmol/L (3.4-5.1); Sodium 137 mmol/L (137-145); Total Protein 8.4 g/dL (6.3-8.2)
--- NOTE | 2023-09-10 11:48 | DI.US.S_ITS ---
PROCEDURE: US RENAL COMPLETE INDICATIONS: FLANK/SUPRAPUBIC PAIN TECHNIQUE: Real-time scanning was performed of the kidneys and bladder, with image documentation. COMPARISON: [facility], US, RENAL COMPLETE, 11/14/2008, 16:13. [facility], CT, CT KIDNEY URETER BLADDER (KUB), 02/08/2023, 8:43. FINDINGS: Kidneys: The kidneys measure 11-12 centimeters. No hydronephrosis, solid mass, complex cystic lesion, or significant cortical thinning. Bladder: Postvoid volume of the bladder is 5 cc. Both ureteral jets are seen. Miscellaneous: Ovaries are not well identified due to bowel gas. No significant pelvic fluid collection. IMPRESSION: No acute sonographic abnormality in kidneys or bladder. No hydronephrosis or obstructing stone. Postvoid residual is 5 cc. Dictated by: Preet Woo M.D. on 09/10/2023 at 13:39 Approved by: Preet Woo M.D. on 09/10/2023 at 13:40
--- NOTE | 2023-09-10 11:49 | PC.NURSE ---
at 1055 pt told RN she felt was she was beginning to have an ocular migraine with blurry vision on her right eye. Dr. Hernández made aware.
--- NOTE | 2023-09-10 13:14 | PC.NURSE ---
Transfer to [facility] initiated face sheet faxed to transfer center, Request made to push images.
== END 2023-09-10 13:52 | disposition home or self-care (01) ==
PROVIDERS: Emergency Provider Emergency Medicine; PCP Family Medicine
DX: R10.2 Pelvic and perineal pain (principal)
CPT/HCPCS: 36415; 76770; 80053; 85025; 96361; 96374; 99284; J1885

== ENCOUNTER 2023-11-11 13:12 | Emergency (ER) | payer OTHER, SELFPAY ==
[2023-11-11] VITALS (15 sets, daily range): BP systolic 135–172; BP diastolic 78–96; PULSE 88–106; RESP 18; TEMP 36.1; O2SAT 95–100; BMI 27.1
[2023-11-11 13:33] LABS: Add Manual Diff / Slide Review NO; Basophils Absolute Auto 100 /uL (0-100); Basophils Percent Auto 0.6 % (0-2); Eosinophils Absolute Auto 200 /uL (0-450); Eosinophils Percent Auto 1.6 % (2-4); Hematocrit 43.1 % (36-46); Hemoglobin 14.8 g/dL (12.0-16.0); Lymphocytes Absolute Auto 1400 /uL (1100-4500); Lymphocytes Percent Auto 9.3 % (25-40); Mean Corpuscular HGB Conc 34.3 % (30-36); Mean Corpuscular Hemoglobin 29.7 PG (26-34); Mean Corpuscular Volume 86.4 fL (80-100); Monocytes Absolute Auto 600 /uL (0-900); Monocytes Percent Auto 3.9 % (3-14); Neutrophils Absolute Auto 12400 /uL (1500-7000); Neutrophils Percent Auto 84.6 % (50-75); Platelet Count 286 X10^3/uL (150-400); Red Blood Cell Count 4.99 X10^6/uL (4.0-5.2); Red Cell Distribution Width 13.4 % (11.6-14.8); White Blood Cell Count 14.6 X10^3/uL (4.5-11.0)
[2023-11-11] MEDS: SODIUM CHLORIDE 0.9% 1,000 ML 1000 ML IV (13:35)
--- NOTE | 2023-11-11 13:46 | DI.CT.S_ITS ---
PROCEDURE: CT KIDNEY URETER BLADDER (KUB) INDICATIONS: L FLANK PAIN, HX STONES TECHNIQUE: Axial sections were acquired from the lung bases to the pubic symphysis. Coronal and sagittal reformats were performed. For radiation dose reduction, the following was used: automated exposure control, adjustment of mA and/or kV according to patient size. COMPARISON: None. FINDINGS: Image quality: Diagnostic. Lower Chest: No significant findings. URINARY: Right Kidney: A few punctate nonobstructive stones. Right Ureter: No hydroureter. Left Kidney: A few small 1-2 mm stones. Left Ureter: Mild proximal hydronephrosis with a proximal ureteral stone measuring 4 mm. Bladder: Normal wall thickness. No stones. ABDOMEN: Liver: No contour-deforming solid mass. Gallbladder: No radiopaque gallstones or wall thickening. Biliary ducts: No biliary dilation. Pancreas: No ductal dilation. Spleen: Size is within normal limits. Adrenal Glands: No adrenal nodules. Stomach and Bowel: Normal colonic caliber, without significant wall thickening. Scattered colonic diverticula without evidence of acute diverticulitis. Peritoneum: No abnormal intraperitoneal fluid. No free air. Ventral Wall: No hernia. Abdominal Nodes: No enlarged retroperitoneal or mesenteric lymph nodes. Vessels: Aorta and inferior vena cava are normal in size. PELVIS: Pelvic Organs: Status post hysterectomy. Pelvic Nodes: Unremarkable. Miscellaneous: No inguinal hernias are seen. Bones: Unremarkable. IMPRESSION: Left proximal ureteral stone measuring 4 mm with left-sided hydronephrosis. Additional bilateral small stones. Dictated by: Jones Acosta M.D. on 11/11/2023 at 13:44 Approved by: Jones Acosta M.D. on 11/11/2023 at 13:47
[2023-11-11 13:47] LABS: Alanine Aminotransferase 28 IU/L (<35); Albumin 4.5 g/dL (3.5-5.0); Albumin Globulin Ratio 1.3 (1.0-2.8); Alkaline Phosphatase 77 U/L (38-126); Aspartate Aminotransferase 30 IU/L (14-36); BUN Creatinine Ratio 15.4 (6-22); Bilirubin Total 1.5 mg/dL (0.2-1.3); Blood Urea Nitrogen 14 mg/dL (7-17); Calcium 9.9 mg/dL (8.4-10.2); Carbon Dioxide 23 mmol/L (22-32); Chloride 105 mmol/L (98-107); Estimated Glomerular Filt Rate > 60 mL/min (>60); Globulin 3.5 g/dL (1.7-4.1); Glucose 119 mg/dL (70-100); HEMOLYSIS < 15 (0-50); Potassium 3.8 mmol/L (3.4-5.1); Sodium 137 mmol/L (137-145)
--- NOTE | 2023-11-11 13:50 | ED_ITS ---
HPI - Female Genitourinary General Chief complaint: Urogenital-Female Stated complaint: thinks kidney stones Time Seen by Provider: 11/11/23 13:21 Source: patient Mode of arrival: Ambulatory History of Present Illness HPI Narrative: 47-year-old female with history of renal stones presents by private vehicle from home for 1 day left-sided flank pain. States it is similar to previous kidney stones however pain goes ?into my intestines?. Not controlled with home pain medications. Patient reports 10/ pain in her left side and lower abdomen Related Data Previous Rx's Medication Instructions Recorded cyclobenzaprine 10 mg tablet 10 mg PO Q8H PRN muscle spasm #21 08/11/21 tabs hydrocodone 5 mg-acetaminophen 325 1 tab PO Q8H PRN pain #7 tabs 08/11/21 mg tablet ibuprofen 800 mg tablet 800 mg PO Q8H PRN pain #21 tabs 08/11/21 diazepam 5 mg tablet (Valium) 5 mg PO Q12HR PRN muscle spasm #10 03/19/22 tabs hydrocodone 5 mg-acetaminophen 325 1 tab PO Q6H PRN pain #10 tabs 03/19/22 mg tablet oxycodone-acetaminophen 5 mg-325 1 tab PO Q6H PRN pain #10 tabs 06/19/22 mg tablet (Percocet) cyclobenzaprine 10 mg tablet 10 mg PO TID PRN muscle spasm #14 02/08/23 tabs hydrocodone 5 mg-acetaminophen 325 1 tab PO Q4-6H PRN pain #10 tabs 02/08/23 mg tablet ketorolac 10 mg tablet 10 mg PO Q6H PRN pain #14 tabs 02/08/23 ondansetron 4 mg disintegrating 4 mg PO Q8H PRN nausea and 11/11/23 tablet vomiting #30 tabs oxycodone-acetaminophen 5 mg-325 1 tab PO Q4-6H PRN pain #14 tabs 11/11/23 mg tablet tamsulosin 0.4 mg capsule 0.4 mg PO DAILY #30 caps 11/11/23 Allergies Allergy/AdvReac Type Severity Reaction Status Date / Time codeine [CODEINE] AdvReac Unknown Vomiting Verified 11/11/23 13:16 Review of Systems Review of Systems Narrative: Negative except as noted above Patient History alcohol intake frequency: holidays/special occasions only Substance Use Type: does not use Exam Initial Vital Signs Initial Vital Signs: Vital Signs Temperature 97 F L 11/11/23 13:16 Pulse Rate 101 H 11/11/23 13:16 Respiratory Rate 18 11/11/23 13:16 Blood Pressure 142/83 H 11/11/23 13:16 Pulse Oximetry 100 11/11/23 13:16 Oxygen Delivery Method Room Air 11/11/23 13:16 Const: Awake, alert, uncomfortable, in pain Cardiac: Tachycardia, regular rhythm RESP: Hyperventilating, clear bilaterally, no wheezing GI: Soft, generalized left upper and lower tenderness to deep palpation MSK: L CVA tenderness to percussion Skin: Warm, Dry, intact, no rashes Neuro: AO x3, CN II-XII grossly intact, moves all extremities Course Orders Ordered: ED Orders 11/11/23 13:25 CBC Auto Diff [Complete Blood Count AUTO DIFF] Stat CMP [Comprehensive Metabolic Panel] Stat 11/11/23 13:46 CT kidney ureter bladder (KUB) Stat 11/11/23 15:38 UA Complete [Urinalysis and Microscopic] Stat Discontinued Medications Acetaminophen (Acetaminophen 325 Mg Tablet) 975 mg PO NOW ONE Stop: 11/11/23 16:21 Last Admin: 11/11/23 16:30 Dose: 975 mg Documented By: MARY Sodium Chloride (Normal Saline 0.9%) 1,000 mls @ 1,000 mls/hr IV BOLUS ONE Stop: 11/11/23 14:21 Last Infusion: 11/11/23 14:35 Dose: Infused Documented By: Admin: 11/11/23 13:35 Dose: 1,000 mls/hr Documented By: ESTEPHANIE Sodium Chloride (Normal Saline 0.9%) 1,000 mls @ 1,000 mls/hr IV BOLUS ONE Stop: 11/11/23 14:41 Last Admin: 11/11/23 13:55 Dose: Not Given Documented By: ESTEPHANIE Acetaminophen (Ofirmev) 1,000 mg in 100 mls @ 400 mls/hr IV NOW ONE Stop: 11/11/23 14:50 Last Infusion: 11/11/23 14:50 Dose: Infused Documented By: Admin: 11/11/23 14:38 Dose: 400 mls/hr Documented By: MARY Ketorolac Tromethamine (Ketorolac 30 Mg/Ml Vial) 15 mg IV NOW ONE Stop: 11/11/23 13:43 Last Admin: 11/11/23 13:54 Dose: 15 mg Documented By: ESTEPHANIE Morphine Sulfate (Morphine 4 Mg/Ml Inj) 4 mg IV NOW ONE Stop: 11/11/23 13:43 Last Admin: 11/11/23 13:54 Dose: 4 mg Documented By: ESTEPHANIE Ondansetron HCl (Ondansetron 4 Mg/2 Ml Inj) 4 mg IV NOW ONE Stop: 11/11/23 13:43 Last Admin: 11/11/23 13:54 Dose: 4 mg Documented By: ESTEPHANIE Ondansetron HCl (Ondansetron 4 Mg Odt) 4 mg SL NOW ONE Stop: 11/11/23 16:21 Last Admin: 11/11/23 16:25 Dose: 4 mg Documented By: MARY Oxycodone HCl (Oxycodone Ir 5 Mg Tablet) 5 mg PO NOW ONE Stop: 11/11/23 16:21 Last Admin: 11/11/23 16:28 Dose: 5 mg Documented By: MARY Vital Signs Vital signs: Vital Signs - 8 hr 11/11/23 13:16 11/11/23 13:23 11/11/23 13:24 Temperature 97 F L Pulse Rate 101 H 106 H 100 H Respiratory Rate 18 Blood Pressure 142/83 H Pulse Oximetry 100 99 100 Oxygen Delivery Method Room Air 11/11/23 13:24 11/11/23 13:30 11/11/23 13:30 Temperature Pulse Rate 95 H Respiratory Rate Blood Pressure 170/92 H 137/78 Pulse Oximetry 100 Oxygen Delivery Method 11/11/23 14:10 11/11/23 14:11 11/11/23 14:11 Temperature Pulse Rate 105 H 106 H Respiratory Rate Blood Pressure 172/96 H Pulse Oximetry 96 100 Oxygen Delivery Method Room Air 11/11/23 14:30 11/11/23 14:30 11/11/23 15:00 Temperature Pulse Rate 90 88 Respiratory Rate Blood Pressure 147/80 H Pulse Oximetry 100 100 Oxygen Delivery Method Room Air 11/11/23 15:00 11/11/23 15:05 11/11/23 15:10 Temperature Pulse Rate 90 90 Respiratory Rate Blood Pressure 135/80 Pulse Oximetry 99 97 Oxygen Delivery Method Room Air 11/11/23 15:15 11/11/23 15:20 11/11/23 15:25 Temperature Pulse Rate 93 H 90 93 H Respiratory Rate Blood Pressure Pulse Oximetry 95 95 Oxygen Delivery Method Room Air 11/11/23 16:13 11/11/23 16:15 11/11/23 16:15 Temperature Pulse Rate 99 H 104 H Respiratory Rate Blood Pressure 143/95 H Pulse Oximetry 96 97 Oxygen Delivery Method Room Air MDM - Female Genitourinary Differential Diagnosis Differential diagnosis: Likely urinary tract infection, cystitis and dysmenorrhea Lab Data 11/11/23 13:25 11/11/23 13:25 Labs: Lab Results 11/11/23 11/11/23 Range/Units 13:25 15:38 WBC 14.6 H (4.5-11.0) X10^3/uL RBC 4.99 (4.0-5.2) X10^6/uL Hgb 14.8 (12.0-16.0) g/dL Hct 43.1 (36-46) % MCV 86.4 (80-100) fL MCH 29.7 (26-34) PG MCHC 34.3 (30-36) % RDW 13.4 (11.6-14.8) % Plt Count 286 (150-400) X10^3/uL Neut % (Auto) 84.6 H (50-75) % Lymph % (Auto) 9.3 L (25-40) % [place] % (Auto) 3.9 (3-14) % Eos % (Auto) 1.6 L (2-4) % Baso % (Auto) 0.6 (0-2) % Neut # (Auto) 93962 H (1158-1999) /uL Lymph # (Auto) 1400 (0541-6488) /uL [place] # (Auto) 600 (0-900) /uL Eos # (Auto) 200 (0-450) /uL Baso # (Auto) 100 (0-100) /uL Sodium 137 (137-145) mmol/L Potassium 3.8 (3.4-5.1) mmol/L Chloride 105 (98-107) mmol/L Carbon Dioxide 23 (22-32) mmol/L BUN 14 (7-17) mg/dL Creatinine 0.91 (0.52-1.04) mg/dL Estimated GFR > 60 (>60) mL/min BUN/Creatinine Ratio 15.4 (6-22) Glucose 119 H (70-100) mg/dL Calcium 9.9 (8.4-10.2) mg/dL Total Bilirubin 1.5 H (0.2-1.3) mg/dL AST 30 (14-36) IU/L ALT 28 (<35) IU/L Alkaline Phosphatase 77 (38-126) U/L Total Protein 8.0 (6.3-8.2) g/dL Albumin 4.5 (3.5-5.0) g/dL Globulin 3.5 (1.7-4.1) g/dL Albumin/Globulin Ratio 1.3 (1.0-2.8) Urine Color Yellow Urine Appearance Clear Urine pH 8.0 (4.5-8.0) Ur Specific [place] 1.015 (1.000-1.035) Urine Protein Negative (Negative) Urine Glucose (UA) Negative (Negative) g/dL Urine Ketones 2+ H (NEGATIVE) Urine Occult Blood 2+ H (Negative) Urine Nitrate Negative (Negative) Urine Bilirubin Negative (NEGATIVE) Urine Urobilinogen 0.2 (0.2) E.U./dL Ur Leukocyte Esterase Negative (NEGATIVE) Urine RBC 10-30/hpf H (0-5/HPF) Urine WBC None seen (0-5/HPF) Ur Squamous Epith Cells None seen (0-5/HPF) Urine Bacteria Few (2-10) H (None) Ur Culture Indicated? Cult not indicated Vol Urine Centrifuged 10ml (spun) Imaging Data CT scan - abdomen/pelvis: Radiologist's Impression: PROCEDURE: CT KIDNEY URETER BLADDER (KUB) INDICATIONS: L FLANK PAIN, HX STONES TECHNIQUE: Axial sections were acquired from the lung bases to the pubic symphysis. Coronal and sagittal reformats were performed. For radiation dose reduction, the following was used: automated exposure control, adjustment of mA and/or kV according to patient size. COMPARISON: None. FINDINGS: Image quality: Diagnostic. Lower Chest: No significant findings. URINARY: Right Kidney: A few punctate nonobstructive stones. Right Ureter: No hydroureter. Left Kidney: A few small 1-2 mm stones. Left Ureter: Mild proximal hydronephrosis with a proximal ureteral stone measuring 4 mm. Bladder: Normal wall thickness. No stones. ABDOMEN: Liver: No contour-deforming solid mass. Gallbladder: No radiopaque gallstones or wall thickening. Biliary ducts: No biliary dilation. Pancreas: No ductal dilation. Spleen: Size is within normal limits. Adrenal Glands: No adrenal nodules. Stomach and Bowel: Normal colonic caliber, without significant wall thickening. Scattered colonic diverticula without evidence of acute diverticulitis. Peritoneum: No abnormal intraperitoneal fluid. No free air. Ventral Wall: No hernia. Abdominal Nodes: No enlarged retroperitoneal or mesenteric lymph nodes. Vessels: Aorta and inferior vena cava are normal in size. PELVIS: Pelvic Organs: Status post hysterectomy. Pelvic Nodes: Unremarkable. Miscellaneous: No inguinal hernias are seen. Bones: Unremarkable. IMPRESSION: Left proximal ureteral stone measuring 4 mm with left-sided hydronephrosis. Additional bilateral small stones. Dictated by: Jones Acosta M.D. on 11/11/2023 at 13:44 Approved by: Jones Acosta M.D. on 11/11/2023 at 13:47 MDM Narrative Medical decision making narrative: Left-sided flank and abdominal pain similar to previous kidney stones accept the pain this time feels like it was ?in my intestines?. I evaluated the patient last time she was in the emergency department for a different issue and she reported extreme reluctance to get a CT scan due to radiation risks. Patient states this time she was willing to undergo CT imaging so that she could figure out what is causing her pain. IV fluids, Toradol, morphine ordered for pain. Nursing reports that patient declined morphine stating that she did not want narcotics. IV Tylenol and IV pain dose ketamine ordered. CT shows left-sided 4 mm stone with mild hydronephrosis. Kidney function within normal limits. Patient's pain and nausea well controlled with medications. Patient informed of all lab and imaging findings, she states that she has not followed up with Urology in many years because her last kidney stone was greater than 10 years ago. Referral to local urology provided. Pain, nausea medications, Flomax sent to pharmacy of choice. ED return precautions discussed at bedside. Patient expressed understanding of the plan and is in agreement at this time. All questions answered at the time of discharge. Discharge Plan Departure Patient Disposition: Home Clinical Impression: Kidney stone Instructions: DI for Kidney Stones Activity Restrictions/Additional Instructions: Drink plenty of water to help the kidney stone pass. Take ibuprofen or Aleve with the prescribed pain medication. You may supplement with a small amount of Tylenol as well, however the Percocets have Tylenol in them and you should not take more than 4000 mg total of Tylenol daily. Make sure that you follow up with Urology. Pain medications prescribed may cause constipation, take a stool softener to prevent constipation Prescriptions: New ondansetron 4 mg tablet,disintegrating 4 mg PO Q8H PRN (Reason: nausea and vomiting) Qty: 30 0RF oxycodone-acetaminophen 5-325 mg tablet 1 tab PO Q4-6H PRN (Reason: pain) Qty: 14 0RF tamsulosin 0.4 mg capsule 0.4 mg PO DAILY Qty: 30 0RF No Action oxycodone-acetaminophen [Percocet] 5-325 mg tablet 1 tab PO Q6H PRN (Reason: pain) Qty: 10 0RF cyclobenzaprine 10 mg tablet 10 mg PO TID PRN (Reason: muscle spasm) Qty: 14 0RF hydrocodone-acetaminophen 5-325 mg tablet 1 tab PO Q4-6H PRN (Reason: pain) Qty: 10 0RF ketorolac 10 mg tablet 10 mg PO Q6H PRN (Reason: pain) Qty: 14 0RF ibuprofen 800 mg tablet 800 mg PO Q8H PRN (Reason: pain) Qty: 21 0RF cyclobenzaprine 10 mg tablet 10 mg PO Q8H PRN (Reason: muscle spasm) Qty: 21 0RF hydrocodone-acetaminophen 5-325 mg tablet 1 tab PO Q8H PRN (Reason: pain) Qty: 7 0RF hydrocodone-acetaminophen 5-325 mg tablet 1 tab PO Q6H PRN (Reason: pain) Qty: 10 0RF diazepam [Valium] 5 mg tablet 5 mg PO Q12HR PRN (Reason: muscle spasm) Qty: 10 0RF Referrals: Jones Munoz MD [Physician] - Debra Alexander MD [Primary Care Provider] - Stand Alone Forms: Patient Portal/API
[2023-11-11] MEDS: MORPHINE 4 MG/ML INJ IV (13:54)
[2023-11-11] MEDS: ONDANSETRON 4 MG/2 ML INJ IV (13:54)
[2023-11-11] MEDS: KETOROLAC 30 MG/ML VIAL 15 MG IV (13:54)
[2023-11-11] MEDS: ACETAMINOPHEN IV 1,000 MG/100 ML VIAL 400 MG IV (14:38)
[2023-11-11] MEDS: KETAMINE 50 MG/5 ML *SYRINGE 10 MG IV (14:51)
[2023-11-11 15:44] LABS: Appearance Urine UA CLEAR; Bilirubin Urine UA NEGATIVE (NEGATIVE); Color Urine UA YELLOW; Glucose Urine UA NEGATIVE (Negative); Ketones Urine UA 2+ (NEGATIVE); Leukocyte Esterase Urine UA NEGATIVE (NEGATIVE); Nitrite Urine UA NEGATIVE (Negative); Occult Blood Urine UA 2+ (Negative); Protein Urine UA NEGATIVE (Negative); Specific Gravity Urine UA 1.015 (1.000-1.035); Urobilinogen Urine UA 0.2 E.U./dL (0.2)
[2023-11-11 15:51] LABS: Urine Volume 10mL (spun)
[2023-11-11 15:52] LABS: Bacteria Urine Few (2-10); Culture Indicated Urine Cult Not Indicated; RBC Urine 10-30/HPF (0-5/HPF); Squamous Epithelial Cell Urine None Seen (0-5/HPF); WBC Urine None Seen (0-5/HPF)
[2023-11-11] MEDS: ONDANSETRON 4 MG ODT SL (16:25)
[2023-11-11] MEDS: OXYCODONE IR 5 MG TABLET PO (16:28)
--- NOTE | 2023-11-11 16:28 | PC.NURSE ---
Pt had been given D/C instructions and was changing her clothes. Pt opens the door and states I'm not feeling well. Pt layed down, panting. Provider notified and new med orders placed. Pt tolerating PO medication, laying on her side. Spouse has arrived and is at bedside.
== END 2023-11-11 16:52 | disposition home or self-care (01) ==
PROVIDERS: Emergency Provider Emergency Medicine; PCP Family Medicine
DX: N20.0 Calculus of kidney (principal); Z79.899 Other long term (current) drug therapy; Z87.442 Personal history of urinary calculi
CPT/HCPCS: 36415; 74176; 80053; 81001; 85025; 96361; 96374; 96375; 99284; J0136; J1885; J2270; J2405

== ENCOUNTER → 2023-11-15 12:09 | Outpatient (CLI) | payer OTHER, SELFPAY ==
--- NOTE | 2023-11-15 12:11 | DI.RAD.S_ITS ---
PROCEDURE: XR KUB INDICATIONS: Follow-up kidney stone TECHNIQUE: One view of the abdomen acquired. COMPARISON: CT KUB 11/11/2023. FINDINGS: Surgical changes and devices: None. Bowel: Bowel gas pattern is normal. Soft tissues: No suspicious abdominal calcifications. Visualized solid organ contours appear normal in size. Bones: No suspicious bony lesions. IMPRESSION: No definite radiographic evidence of calcified nephrolithiasis. Approved by: Evelin Kelsey M.D.,Ph.D. on 11/15/2023 at 21:47
== END ==
PROVIDERS: PCP Family Medicine; Referring Provider Urology; Visit Provider Urology
DX: Z87.442 Personal history of urinary calculi (principal); Z09 Encounter for follow-up examination after completed treatment for conditions other than malignant neoplasm
CPT/HCPCS: 74018

== ENCOUNTER → 2023-11-21 16:34 | Outpatient (CLI) | payer OTHER, SELFPAY ==
[2023-11-21 17:14] LABS: Appearance Urine UA CLEAR; Bilirubin Urine UA NEGATIVE (NEGATIVE); Color Urine UA YELLOW; Glucose Urine UA NEGATIVE (Negative); Ketones Urine UA NEGATIVE (NEGATIVE); Leukocyte Esterase Urine UA NEGATIVE (NEGATIVE); Nitrite Urine UA NEGATIVE (Negative); Occult Blood Urine UA TRACE-INTACT (Negative); Protein Urine UA NEGATIVE (Negative); Specific Gravity Urine UA 1.015 (1.000-1.035); Urobilinogen Urine UA 0.2 E.U./dL (0.2)
[2023-11-21 17:16] LABS: pH Urine UA 5.5 (4.5-8.0)
[2023-11-21 17:22] LABS: Bacteria Urine Few (2-10); Culture Indicated Urine Cult Not Indicated; Mucus Urine 1+ (Negative); RBC Urine 0-1/HPF (0-5/HPF); Squamous Epithelial Cell Urine 0-1 /HPF (0-5/HPF); Urine Volume 10mL (spun); WBC Urine 1-5/HPF (0-5/HPF)
== END ==
PROVIDERS: PCP Family Medicine; Referring Provider Urology; Visit Provider Urology
DX: N20.1 Calculus of ureter (principal); N20.0 Calculus of kidney
CPT/HCPCS: 81001